=== PATIENT | male | born 1965 | race Two or more races ===

== ENCOUNTER 2021-09-04 11:07 | Emergency (ER) | payer BC, OTHER ==
[~2021-09-04] VITALS: Ht 175.3 cm; Wt 86.2 kg
[2021-09-04 11:07] VITALS: BP_SYST 185
--- NOTE | 2021-09-04 11:07 | NUR ---
BROUGHT BACK TO BED #3 AND TRIAGED. REPORT GIVEN TO IRWIN
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
--- NOTE | 2021-09-04 11:12 | NUR ---
DR LOPEZ AT BEDSIDE FOR EVALUATION
[2021-09-04] MEDS ORDERED: IBUPROFEN 600 MG TABLET PO ONE (11:30)
[2021-09-04] MEDS ORDERED: DIPH-TET-PERTUS Vaccine 0.5 ML VIAL (ADACEL) I.M. ONE (11:30)
[2021-09-04] MEDS ORDERED: oxyCODONE HCL 5 MG TABLET PO ONE (11:30)
--- NOTE | 2021-09-04 11:35 | NUR ---
IRRIGATION DONE BY DR LOPEZ. PT TOLERATED IT WELL.
--- NOTE | 2021-09-04 12:10 | NUR ---
DRESSING APPLIED AND PT TOLERATED IT WELL. AT BESIDE FOR SUPPORT.
[2021-09-04] MEDS ORDERED: IBUP-1969 PO (12:23)
[2021-09-04] MEDS ORDERED: ACET-2634 PO (12:23)
--- NOTE | 2021-09-04 12:41 | NUR ---
Patient given written and verbal discharge instructions and verbalizes understanding. ER MD discussed with patient the results and treatment provided. Patient in stable condition. ID arm band removed. Rx of IBUPROFEN, TYLENOL given. Patient educated on pain management and to follow up with PMD. Pain Scale 0/10. Opportunity for questions provided and answered. Medication side effect fact sheet provided.
== END 2021-09-04 12:41 | disposition home or self-care (01) ==
LOC: SED 11:07
DX: S61.201A Unspecified open wound of left index finger without damage to nail, initial encounter (principal); Z88.5 Allergy status to narcotic agent; Z88.6 Allergy status to analgesic agent; Z79.899 Other long term (current) drug therapy; W31.2XXA Contact with powered woodworking and forming machines, initial encounter; Y93.89 Activity, other specified; Y92.89 Other specified places as the place of occurrence of the external cause; Y99.8 Other external cause status
CPT/HCPCS: 73140-TC; 90715; 99283